=== PATIENT | female | born 2000 | race Caucasian/White ===

== ENCOUNTER 2019-10-05 16:02 | Emergency (ER) | payer OTHER ==
[~2019-10-05] VITALS: Ht 165 cm; Wt 90.7 kg
[2019-10-05 16:27] VITALS: BP 126/76
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
[2019-10-05] MEDS ORDERED: CYCL10TA9 PO (17:29)
== END 2019-10-05 17:35 | disposition home or self-care (01) ==
LOC: ER 16:04
DX: S06.0X0A Concussion without loss of consciousness, initial encounter (principal); S16.1XXA Strain of muscle, fascia and tendon at neck level, initial encounter; F17.210 Nicotine dependence, cigarettes, uncomplicated; V49.40XA Driver injured in collision with unspecified motor vehicles in traffic accident, initial encounter

== ENCOUNTER → 2019-10-27 | Outpatient (CLI) | payer OTHER ==
[~2019-10-27] MED LIST: CYCL10TA9 PO
--- NOTE | 2019-10-27 10:30 | Diagnostic Imaging Report ---
PROCEDURE: MR imaging of the brain without contrast. TECHNIQUE: Multiplanar, multisequence MR imaging of the brain was performed without contrast. INDICATION: Headache after head injury. FINDINGS: The ventricles and sulci are within normal limits. There is no hydrocephalus. There is no midline shift. There is no mass, hemorrhage or extra-axial fluid collection. There are no areas of diffusion restriction appreciated to suggest an acute CVA. The frontal, ethmoid, sphenoid and maxillary sinuses are clear. The mastoid air cells are clear. The globes and intraorbital structures are unremarkable. The central arterial and dural venous sinus flow voids are preserved. IMPRESSION: Unremarkable MRI of the brain. Dictated by: Dictated on workstation # [id number]
== END ==
LOC: RAD 09:11
PROVIDERS: ATTEND Nurse Practitioner Family
DX: S09.8XXA Other specified injuries of head, initial encounter (principal)
CPT/HCPCS: 70551

== ENCOUNTER → 2019-11-17 | Outpatient (CLI) | payer BC, OTHER ==
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
== END ==
LOC: RAD 16:30
PROVIDERS: ATTEND Nurse Practitioner Family
DX: M51.37 Other intervertebral disc degeneration, lumbosacral region (principal); V89.2XXS Person injured in unspecified motor-vehicle accident, traffic, sequela
CPT/HCPCS: 72146; 72148

== ENCOUNTER 2020-04-28 10:05 | Emergency (ER) | payer BC ==
[~2020-04-28] VITALS: Ht 165.1 cm; Wt 90.7 kg
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
--- NOTE | 2020-04-28 10:27 | ED Upper Extremity ---
General Chief Complaint: Upper Extremity Stated Complaint: R HAND PAIN Source: patient Exam Limitations: no limitations History of Present Illness Date Seen by Provider: Apr 28, 2020 Time Seen by Provider: 10:26 Initial Comments To ER with pain over the right fourth and fifth metacarpals of the right hand after a felecia fell on it just prior to arrival Onset: just prior to arrival Severity: moderate Pain/Injury Location: right hand Method of Injury: direct blow Modifying Factors: Worse With Movement Allergies and Home Medications Allergies Coded Allergies: No Known Drug Allergies (Unverified , 10/05/19) Home Medications Cyclobenzaprine HCl 10 Mg Tablet, 10 MG PO Q8H PRN for SPASMS Prescribed by: NAS MALLOY on 10/05/19 0899 Patient Home Medication List Home Medication List Reviewed: Yes Review of Systems Constitutional: see HPI EENTM: see HPI Respiratory: no symptoms reported Cardiovascular: no symptoms reported Genitourinary: no symptoms reported Musculoskeletal: see HPI Skin: no symptoms reported Psychiatric/Neurological: No Symptoms Reported Past Vpnihnl-Npowpb-Pefafk Hx Patient Social History Type Used: Cigarettes Recent Foreign Travel: No Contact w/Someone Who Travel: No Recent Hopitalizations: No Seasonal Allergies Seasonal Allergies: No Past Medical History Surgeries: Yes (R ANKLE) Respiratory: No Cardiac: No Neurological: No Genitourinary: No Gastrointestinal: No Musculoskeletal: No Endocrine: No HEENT: No Cancer: No Psychosocial: No Integumentary: No Blood Disorders: No Physical Exam Vital Signs Vital Signs - First Documented 04/28/20 10:17 Temp 37.0 Pulse 84 Resp 20 B/P (MAP) 118/81 (93) Pulse Ox 98 O2 Delivery Room Air Capillary Refill : Height, Weight, BMI Height: '" Weight: lbs. oz. kg; 33.00 BMI Method: General Appearance: WD/WN, no apparent distress HEENT: PERRL/EOMI, normal ENT inspection Respiratory: no respiratory distress, no accessory muscle use Shoulder: normal inspection, non-tender Elbow/Forearm: normal inspection, non-tender Wrist: Yes normal inspection, Yes non-tender Hand: Right, deformity, soft tissue tenderness, swelling Neurologic/Tendon: normal sensation Neurologic/Psychiatric: alert, normal mood/affect, oriented x 3 Skin: normal color, warm/dry Progress/Results/Core Measures Results/Orders My Orders Orders - ALEXX GOODEN APRN Hydrocodone/Apap 5/325 Tablet (Lortab 5 (04/28/20 10:30) Hand, Right, 3 Views (04/28/20 10:24) Hand, Right, 3 Views (04/28/20 11:03) Medications Given in ED Current Medications Medications Dose Ordered Sig/Heather Route Start Time Stop Time Status Last Admin Dose Admin Acetaminophen/ Hydrocodone Bitart 1 tab ONCE ONCE PO 04/28/20 10:30 04/28/20 10:31 DC 04/28/20 11:06 1 TAB Vital Signs/I&O 04/28/20 10:17 Temp 37.0 Pulse 84 Resp 20 B/P (MAP) 118/81 (93) Pulse Ox 98 O2 Delivery Room Air Departure Communication (Admissions) 2233-hematoma block done using a total of 5 mL of 50% 0.5% bupivacaine and 1% lidocaine without epinephrine Attempted fracture reduction, unable to maintain reduction, I can feel it reduce but as soon as I let my hand off of it to get the x-ray, it displaces again. I'll have her follow up with Dr. Alfaro, discussed with her this may need pinning. She was placed in an ulnar gutter style splint using 4 inch Ortho-Glass Impression Primary Impression: Metacarpal bone fracture Qualified Codes: S62.326A - Displaced fracture of shaft of fifth metacarpal bone, right hand, initial encounter for closed fracture Disposition: HOME, SELF-CARE Condition: Stable Departure-Patient Inst. Decision time for Depature: 11:21 Referrals: [facility] [place] (PCP/Family) Primary Care Physician NATE ALFARO MD Patient Instructions: Hand Fracture Add. Discharge Instructions: 1. Keep the splint on clean and dry at all times. Follow-up with Dr. Alfaro. Call Thursday to make an appointment to be seen. Pain medication as directed. All discharge instructions reviewed with patient and/or family. Voiced understanding. ALEXX GOODEN APRN Apr 28, 2020 10:27
[2020-04-28] MEDS ORDERED: HYDROcodone/APAP 5 MG/325 MG (LORTAB) TAB PO ONE (10:30)
--- NOTE | 2020-04-28 10:45 | Diagnostic Imaging Report ---
INDICATION: Pain status post injury. COMPARISON: None FINDINGS: 3 radiographic views of the right hand were obtained and show acute oblique oriented fracture of the distal shaft of the 5th metacarpal. There is angulation of approximately 50 degrees with the apex projecting posteriorly. There is no intra-articular extension. Joint spaces are maintained. No unexpected radio opaque foreign bodies are seen. IMPRESSION: 1. Acute 5th metacarpal fracture as described above. Dictated by: Dictated on workstation # [id number]
[2020-04-28] MEDS ORDERED: HYDR-3870 PO (11:22)
--- NOTE | 2020-04-28 11:27 | Diagnostic Imaging Report ---
Indication: Follow-up right 5th metacarpal fracture. Comparison: Earlier same date. Discussion: Three views of the right hand were obtained. Interval left creation of splint material along the ulnar aspect. There is some residual volar angulation of the distal fragment though overall alignment is improved from the pre-splint images. No dislocation. No unexpected foreign body. IMPRESSION: 1. Interval splinting of the right 5th metacarpal fracture. There is some mild residual volar angulation. Dictated by: Dictated on workstation # [id number]
[2020-04-28 11:29] VITALS: BP 118/81
== END 2020-04-28 11:29 | disposition home or self-care (01) ==
LOC: EDUNIT# 10:05 → ER 10:07
DX: S62.306A Unspecified fracture of fifth metacarpal bone, right hand, initial encounter for closed fracture (principal); W20.8XXA Other cause of strike by thrown, projected or falling object, initial encounter
CPT/HCPCS: 29125; 73130

== ENCOUNTER 2022-06-24 19:29 | Emergency (ER) | payer BC ==
[~2022-06-24] VITALS: Ht 165.1 cm; Wt 113.4 kg
[~2022-06-24 19:29] MED LIST changes: +CYCL10TA25 PO; -CYCL10TA9 PO; +HYDR-3870 PO
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
[2022-06-24] MEDS ORDERED: KETOROLAC 30 MG/ML VIAL IVP ONE (21:45)
[2022-06-24] MEDS ORDERED: ORPHENADRINE 60 MG/2 ML (NORFLEX) AMP (ED ONLY) IVP ONE (21:45)
[2022-06-24] MEDS ORDERED: RX-CYCLOBENZAPRINE 10 MG (FLEXERIL) TAB PPK#3 PO STA (21:47)
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
[2022-06-24] MEDS ORDERED: CYCL10TA25 PO (22:52)
[2022-06-24 23:40] VITALS: BP 143/90
== END 2022-06-24 23:46 | disposition home or self-care (01) ==
LOC: EDUNIT# 19:29 → ER 19:31
DX: M62.838 Other muscle spasm (principal); M25.511 Pain in right shoulder; M79.632 Pain in left forearm; R68.84 Jaw pain; Z28.310 Unvaccinated for COVID-19; Y04.8XXA Assault by other bodily force, initial encounter; Y92.009 Unspecified place in unspecified non-institutional (private) residence as the place of occurrence of the external cause
CPT/HCPCS: 70486; 72125; 73030; 73090